=== PATIENT | male | born 1950 | race Caucasian/White ===

== ENCOUNTER 2018-01-08 14:02 | Emergency (ER) | payer MEDICARE ==
[~2018-01-08] VITALS: Ht 180.3 cm; Wt 75.0 kg
[~2018-01-08 14:02] MED LIST: ADVAIR DISK1; ADVIL200 MG OR; ALBUTEROL S2.5 MG/.5 IN; CIPRO500 MG OR; CIPROFLOXACN500 MG PO; DILAUDID2 MG OR; FLEXERIL PO; FLOMAX0.4 MG OR; LORTAB 5 OR; MEDDOSEPAK PO; MELOXICAM15 MG PO; PERCOCET 10/31 COMBO PO; PROAIR HFA IN; ULTRAM50 M1 PO; ZESTRIL/PRI10 MG/TAB PO
[2018-01-08 15:06] LABS: HEMOGLOBIN 12.3 g/dl (14.0-18.0); MEAN CELL VOLUME 94.6 fL CALC (80.0-100.0); MEAN CORPUSCULAR HGB 31.5 pG CALC (26.0-32.0); MEAN CORPUSCULAR HGB CONC 33.2 g/L CALC (32.0-36.0); NEUT# 7.22 thou/uL (1.82-7.42); RED BLOOD COUNT 3.91 mill/uL (4.70-6.10)
[2018-01-08 15:23] LABS: ALBUMIN 4.3 g/dL (3.2-5.0); BILIRUBIN, TOTAL 0.5 mg/dL (0.0-1.4); CREATININE 1.8 mg/dL (0.7-1.3); TOTAL PROTEIN 6.8 g/dL (6.3-8.2)
[2018-01-08 15:32] LABS: POTASSIUM 4.7 mmol/l (3.5-5.1)
[2018-01-08] MEDS ORDERED: MEDDOSEPAK PO (16:10)
[2018-01-08] MEDS ORDERED: ZITHROMAX250 MG PO (16:10)
[2018-01-08] MEDS ORDERED: PROVENTIL108 MCG/AC IN (16:10)
[2018-01-08 16:32] VITALS: BP 134/75
[2018-01-08] MEDS ORDERED: DUONEB IN (16:34)
== END 2018-01-08 16:32 | disposition home or self-care (01) ==
LOC: ED 14:02
PROVIDERS: Emergency Medicine
DX: J40 Bronchitis, not specified as acute or chronic (principal); F17.210 Nicotine dependence, cigarettes, uncomplicated; R05 Cough; R09.81 Nasal congestion; I10 Essential (primary) hypertension

== ENCOUNTER 2018-06-11 16:24 | Emergency (ER) | payer MEDICARE ==
[~2018-06-11] VITALS: Ht 180.3 cm; Wt 75.9 kg
[~2018-06-11 16:24] MED LIST changes: +DUONEB IN; +PROVENTIL108 MCG/AC IN; +ZITHROMAX250 MG PO
[2018-06-11] MEDS ORDERED: FAMOTIDINE20 M1 PO (16:38)
[2018-06-11] MEDS ORDERED: CEFUROXIME250 MG PO (16:39)
[2018-06-11] MEDS ORDERED: KEFLEX500 M1 PO (17:33)
[2018-06-11 18:15] VITALS: BP 150/72
== END 2018-06-11 18:15 | disposition home or self-care (01) ==
LOC: ED 16:24
PROC: 0JQJ0ZZ Repair Right Hand Subcutaneous Tissue and Fascia, Open Approach (ICD-10-PCS; principal; 2018-06-11)
DX: S61.210A Laceration without foreign body of right index finger without damage to nail, initial encounter (principal); I10 Essential (primary) hypertension; J44.9 Chronic obstructive pulmonary disease, unspecified; W45.8XXA Other foreign body or object entering through skin, initial encounter; Y93.E9 Activity, other interior property and clothing maintenance

== ENCOUNTER 2020-03-20 12:43 | Emergency (ER) | payer MEDICARE ==
[~2020-03-20 12:43] MED LIST changes: +AMOXICILLIN875 MG PO; +CEFUROXIME250 MG PO; +FAMOTIDINE20 M1 PO; +KEFLEX500 M1 PO; +TRAMADOL HYDROC50 MG PO
[2020-03-20] MEDS ORDERED: HYDROXYCHLOR200 M1 PO (13:11)
[2020-03-20] MEDS ORDERED: NIFEDIPINE30 MG PO (13:12)
[2020-03-20] MEDS ORDERED: TAMSULOSIN0.4 MG PO (13:13)
[2020-03-20] MEDS ORDERED: DALIRESP500 MCG PO (13:14)
[2020-03-20] MEDS ORDERED: SPIRIVA RE2.5 MCG/AC IN (13:17)
[2020-03-20] MEDS ORDERED: SYMBICORT1 AE1 IN (13:17)
[2020-03-20 13:36] LABS: HEMATOCRIT 32.1 % (39.0-50.0); HEMOGLOBIN 10.7 g/dl (14.0-18.0); IMMATURE GRANULOCYTES 0.2 % (0.0-5.0); MEAN CELL VOLUME 89.7 fL CALC (80.0-100.0); MEAN CORPUSCULAR HGB 29.9 pG CALC (26.0-32.0); MEAN CORPUSCULAR HGB CONC 33.3 g/dL CAL (32.0-36.0); NEUT# 5.41 thou/uL (1.82-7.42); RED BLOOD COUNT 3.58 mill/uL (4.70-6.10); RED CELL DISTRI WIDTH 13.7 % (11.5-15.5)
[2020-03-20 14:20] LABS: ALBUMIN 3.7 g/dL (3.2-5.0); BILIRUBIN, TOTAL 0.5 mg/dL (0.0-1.4); CREATININE 1.8 mg/dL (0.7-1.3); TOTAL PROTEIN 6.4 g/dL (6.3-8.2)
[2020-03-20 14:31] LABS: POTASSIUM 3.6 mmol/l (3.5-5.1)
[2020-03-20] MEDS ORDERED: ULTRAM50 M1 PO (18:52)
[2020-03-20] MEDS ORDERED: CEPHALEXIN500 M1 PO (18:52)
[2020-03-20 18:55] VITALS: BP 146/66
== END 2020-03-20 18:55 | disposition home or self-care (01) ==
LOC: ED 12:43
PROVIDERS: Emergency Medicine
DX: L03.113 Cellulitis of right upper limb (principal); R23.3 Spontaneous ecchymoses; I10 Essential (primary) hypertension; J44.9 Chronic obstructive pulmonary disease, unspecified; M79.89 Other specified soft tissue disorders

== ENCOUNTER 2020-03-22 10:23 | Emergency (ER) | payer MEDICARE ==
[~2020-03-22 10:23] MED LIST changes: +CEPHALEXIN500 M1 PO; +DALIRESP500 MCG PO; +HYDROXYCHLOR200 M1 PO; +NIFEDIPINE30 MG PO; +SPIRIVA RE2.5 MCG/AC IN; +SYMBICORT1 AE1 IN; +TAMSULOSIN0.4 MG PO
[2020-03-22 10:51] LABS: HEMATOCRIT 32.4 % (39.0-50.0); HEMOGLOBIN 10.9 g/dl (14.0-18.0); IMMATURE GRANULOCYTES 0.4 % (0.0-5.0); MEAN CELL VOLUME 89.5 fL CALC (80.0-100.0); MEAN CORPUSCULAR HGB 30.1 pG CALC (26.0-32.0); MEAN CORPUSCULAR HGB CONC 33.6 g/dL CAL (32.0-36.0); NEUT# 6.93 thou/uL (1.82-7.42); RED BLOOD COUNT 3.62 mill/uL (4.70-6.10); RED CELL DISTRI WIDTH 13.3 % (11.5-15.5)
[2020-03-22 11:27] LABS: ALBUMIN 3.9 g/dL (3.2-5.0); ALKALINE PHOSPHATASE 114 u/l (38-126); ANION GAP 13 (6-22 (CALC)); BILIRUBIN, TOTAL 0.4 mg/dL (0.0-1.4); BUN 15 mg/dL (8-23); BUN/CREATININE RATIO 9 (12-20 (CALC)); CARBON DIOXIDE 22 mmol/l (22-30); CHLORIDE 107 mmol/l (95-108); CREATININE 1.6 mg/dL (0.7-1.3); GFR 43 ML/MIN (>=60 (CALC)); GFR FOR AFR.AMER. 52 ML/MIN (>=60 (CALC)); LIPASE 34 u/l (23-300); POTASSIUM 3.4 mmol/l (3.5-5.1); SGOT/AST 21 u/l (19-48); SODIUM 138 mmol/l (137-146); TOTAL PROTEIN 6.6 g/dL (6.3-8.2)
[2020-03-22 12:21] LABS: URINE BILIRUBIN - DIPSTICK NEGATIVE (NEGATIVE); URINE BLOOD DIPSTICK NEGATIVE (NEGATIVE); URINE COLOR YELLOW; URINE GLUCOSE - DIPSTICK NEGATIVE (NEGATIVE); URINE KETONE NEGATIVE (NEGATIVE); URINE LEUK ESTERASE NEGATIVE (NEGATIVE); URINE NITRITE - DIPSTICK NEGATIVE (Negative); URINE PROTEIN - DIPSTICK NEGATIVE (NEG-TRACE); URINE SPECIFIC GRAVITY 1.015; URINE UROBILINOGEN - DIPSTICK 0.2 E.U./dL (0.2)
[2020-03-22] MEDS ORDERED: ONDANSETRON4 MG PO (12:27)
[2020-03-22 12:51] VITALS: BP 145/74
== END 2020-03-22 13:15 | disposition home or self-care (01) ==
LOC: ED 10:23
PROVIDERS: Family Medicine
DX: K52.9 Noninfective gastroenteritis and colitis, unspecified (principal); I10 Essential (primary) hypertension; J44.9 Chronic obstructive pulmonary disease, unspecified

== ENCOUNTER 2020-03-23 19:54 | Inpatient (IN) | payer MEDICARE ==
[~2020-03-23] VITALS: Ht 180.3 cm; Wt 73.7 kg
[~2020-03-23 19:54] MED LIST changes: +ONDANSETRON4 MG PO
[2020-03-23 21:01] LABS: HEMATOCRIT 33.1 % (39.0-50.0); HEMOGLOBIN 11.1 g/dl (14.0-18.0); IMMATURE GRANULOCYTES 0.4 % (0.0-5.0); MEAN CELL VOLUME 89.7 fL CALC (80.0-100.0); MEAN CORPUSCULAR HGB 30.1 pG CALC (26.0-32.0); MEAN CORPUSCULAR HGB CONC 33.5 g/dL CAL (32.0-36.0); NEUT# 4.71 thou/uL (1.82-7.42); RED BLOOD COUNT 3.69 mill/uL (4.70-6.10); RED CELL DISTRI WIDTH 13.4 % (11.5-15.5)
[2020-03-23 21:22] LABS: ALBUMIN 3.9 g/dL (3.2-5.0); BILIRUBIN, TOTAL 0.3 mg/dL (0.0-1.4); CREATININE 1.8 mg/dL (0.7-1.3); POTASSIUM 3.3 mmol/l (3.5-5.1); TOTAL PROTEIN 6.7 g/dL (6.3-8.2)
[2020-03-23 22:25] VITALS: BP 142/76
[2020-03-24 05:20] LABS: HEMOGLOBIN 10.3 g/dl (14.0-18.0); IMMATURE GRANULOCYTES 0.3 % (0.0-5.0); MEAN CELL VOLUME 90.4 fL CALC (80.0-100.0); MEAN CORPUSCULAR HGB CONC 33.2 g/dL CAL (32.0-36.0); NEUT# 3.24 thou/uL (1.82-7.42); RED BLOOD COUNT 3.43 mill/uL (4.70-6.10); RED CELL DISTRI WIDTH 13.5 % (11.5-15.5)
[2020-03-24 05:26] LABS: CREATININE 1.7 mg/dL (0.7-1.3); POTASSIUM 3.2 mmol/l (3.5-5.1)
[2020-03-24 07:00] VITALS: BP 139/60
[2020-03-24 11:03] VITALS: BP 117/62
[2020-03-24 15:45] VITALS: BP 127/58
[2020-03-24 19:32] VITALS: BP 146/75
[2020-03-25 00:09] VITALS: BP 131/56
[2020-03-25 03:51] VITALS: BP 143/68
[2020-03-25 08:00] VITALS: BP 141/63
[2020-03-25 09:52] LABS: CREATININE 2.1 mg/dL (0.7-1.3); POTASSIUM 3.8 mmol/l (3.5-5.1)
[2020-03-25 12:03] VITALS: BP 137/50
[2020-03-25] MEDS ORDERED: FLORASTOR250 M1 PO (19:15)
[2020-03-25] MEDS ORDERED: DOXYCYCL HYC100 MG PO ×2 (19:15)
[2020-03-25] MEDS ORDERED: AMOX/K CLAV875 M1 PO (19:15)
[2020-03-25 19:46] VITALS: BP 131/63
== END 2020-03-25 19:51 | disposition home or self-care (01) | DRG 603 ==
LOC: ED 19:54 → ED-I 21:24 → ED 21:32 → ICU 21:33
PROVIDERS: Family Medicine; Internal Medicine; ADMIT Internal Medicine; ATTEND Internal Medicine
DX: L03.113 Cellulitis of right upper limb (principal); R23.3 Spontaneous ecchymoses; J44.9 Chronic obstructive pulmonary disease, unspecified; I12.9 Hypertensive chronic kidney disease with stage 1 through stage 4 chronic kidney disease, or unspecified chronic kidney disease; N18.3 Chronic kidney disease, stage 3 (moderate); E87.6 Hypokalemia; Z11.59 Encounter for screening for other viral diseases; R11.2 Nausea with vomiting, unspecified; K52.9 Noninfective gastroenteritis and colitis, unspecified; I10 Essential (primary) hypertension
CPT/HCPCS: Q9967

== ENCOUNTER 2020-04-24 09:48 | Day surgery (SDC) | payer MEDICARE ==
[~2020-04-24] VITALS: Ht 180.3 cm; Wt 72.6 kg
[~2020-04-24 09:48] MED LIST changes: +AMOX/K CLAV875 M1 PO; +DOXYCYCL HYC100 MG PO; +FLORASTOR250 M1 PO
[2020-04-24 12:54] VITALS: BP 145/67
== END 2020-04-24 13:15 | disposition home or self-care (01) ==
LOC: ORM 09:48
PROVIDERS: ATTEND Surgery
PROC: 0JBG0ZZ Excision of Right Lower Arm Subcutaneous Tissue and Fascia, Open Approach (ICD-10-PCS; principal; 2020-04-24)
DX: D21.11 Benign neoplasm of connective and other soft tissue of right upper limb, including shoulder (principal); Z11.59 Encounter for screening for other viral diseases

== ENCOUNTER 2020-05-05 03:24 | Inpatient (IN) | payer MEDICARE ==
[~2020-05-05] VITALS: Ht 180.3 cm; Wt 70.3 kg
--- NOTE | 2020-05-05 03:25 | NUR ---
PATIENT TO ROOM 12 VIA EMS STRETCHER. UNDRESSED INTO A GOWN. TRIAGE COMPLETED AT BEDSIDE. PATIENT HAS ONE EPISODE OF VOMITING, MOSTLY BILE, DURING TRIAGE.
--- NOTE | 2020-05-05 04:25 | NUR ---
PT VOMITED BILE AND MISSED EMESIS BAG. GOWN CHANGED.
[2020-05-05 05:23] LABS: IMMATURE GRANULOCYTES 0.6 % (0.0-5.0); MEAN CELL VOLUME 92.1 fL CALC (80.0-100.0); MEAN CORPUSCULAR HGB 30.4 pG CALC (26.0-32.0); NEUT# 19.74 thou/uL (1.82-7.42); RED BLOOD COUNT 4.05 mill/uL (4.70-6.10); RED CELL DISTRI WIDTH 13.8 % (11.5-15.5)
--- NOTE | 2020-05-05 05:23 | NUR ---
PT VOMITED AGAIN ORDER FOR ZOFRAN RECEIVED AND GIVEN.
[2020-05-05 05:28] LABS: HEMATOCRIT 37.3 % (39.0-50.0); HEMOGLOBIN 12.3 g/dl (14.0-18.0)
[2020-05-05 05:34] LABS: ALBUMIN 4.8 g/dL (3.2-5.0); BILIRUBIN, TOTAL 0.7 mg/dL (0.0-1.4); CREATININE 1.9 mg/dL (0.7-1.3); POTASSIUM 4.1 mmol/l (3.5-5.1); TOTAL PROTEIN 7.4 g/dL (6.3-8.2)
--- NOTE | 2020-05-05 06:14 | NUR ---
BRENNEN IN FOR PORTABLE XRAY AND PT VOMITING WITH LITTLE OUTPUT.
--- NOTE | 2020-05-05 06:23 | NUR ---
CALLED HEAD PORTER [facility] FOR COMPAZINE NOT IN ER OR IV THERAPY
--- NOTE | 2020-05-05 07:04 | NUR ---
REPORT GIVEN TO NICHOL HORAN
--- NOTE | 2020-05-05 07:05 | NUR ---
REPORT REC'D CARE ASSUMED. PT RESTING IN BED AWAITING RETURN, AWARE OF PLANNED ADMISSION AND ASKS ABOUT VISITORS POLICY ONCE ADMITTED. ALL QUESTIONS ANSWERED.
--- NOTE | 2020-05-05 08:00 | NUR ---
PT RESTING AWARE OF PLANNAED ADMISSION, OFFERS NO NEW COMPLAINTS, CALL ZAYAS WITHIN REACH.
--- NOTE | 2020-05-05 09:01 | NUR ---
PT RESTING ATTEMPTED T CALL REPORT NURSE IN ANOTHER ROOM TO CALL WHEN SHE COMES OUT.
--- NOTE | 2020-05-05 09:34 | NUR ---
PT ARRIVED TO FLOOR VIA STRETCHER ACCOMPANIED BY NICHOL HORAN. PT REPORTS NAUSEA, FATIGUE AND EPIGASTRIC PAIN. MANISH RAM IN TO EXAMINE PT. PLAN OF CARE DISUCSSED. DIET OF CLEAR LIQUIDS REVIEWED. EMESIS BAGS PROVIDED. RIGHT ARM INCISION NOTED, CLOSED/SCABBED. SCATTERED BRUISING TO BILATERAL ARMS NOTED. PT. ALERT AND ORIENTED. GENERALIZED WEAKNESS NOTED. FALL PRECAUTIONS REINFORCED. CALL LIGHT REVIEWED AND IN REACH. PT STATES UNDERSTANDING.
--- NOTE | 2020-05-05 09:42 | NUR ---
PT TRANSFERRED TO MED SURG VIA WHEELCAHIR, ALL BELONGINGS WITH PT, NO TELE ORDERED, NURSE AT BEDSIDE AT TIME OF ARRIVAL.
[2020-05-05 09:46] VITALS: BP 140/70
--- NOTE | 2020-05-05 11:30 | NUR ---
DR. WEBB IN TO SEE PT.
--- NOTE | 2020-05-05 13:00 | NUR ---
DARK GREEN EMESIS REPORTED BY WEB SEARCH EVALUATOR. ZOFRAN IV ADMINISTERED. LIMITED PO INTAKE ENCOURAGED AT THIS TIME.
[2020-05-05 13:47] LABS: URINE BILIRUBIN - DIPSTICK NEGATIVE (NEGATIVE); URINE BLOOD DIPSTICK NEGATIVE (NEGATIVE); URINE COLOR YELLOW; URINE GLUCOSE - DIPSTICK NEGATIVE (NEGATIVE); URINE KETONE 15 mg/dL (NEGATIVE); URINE LEUK ESTERASE NEGATIVE (NEGATIVE); URINE NITRITE - DIPSTICK NEGATIVE (Negative); URINE PH 5.5 (4.5-8.0); URINE PROTEIN - DIPSTICK NEGATIVE (NEG-TRACE); URINE UROBILINOGEN - DIPSTICK 0.2 E.U./dL (0.2)
[2020-05-05 15:00] VITALS: BP 159/82
--- NOTE | 2020-05-05 18:00 | NUR ---
100 CC DARK GREEN EMESIS. COMPAZINE IV ADMINISTERED. WILL MONITOR FOR EFFECTIVENESS.
[2020-05-05 18:58] VITALS: BP 130/73
--- NOTE | 2020-05-05 19:00 | NUR ---
RECEIVED REPORT FROM NURSE DARYL, PATIENT RESTING IN BED, EYES CLOSED, CALL LIGHT AT REACH.
--- NOTE | 2020-05-05 21:00 | NUR ---
PATIENT STILL C/O OF NAUSEA, VOMITTED SCANT AMOUNT OF MUCUS, WHITE IN COLOR, PRN ZOFRAN GIVEN, ALSO WITH ONGOING IV NS @ 100 CC/HR INFUSING WELL ON LAC, LBM7/4, BRUISING NOTED ON BILAT FOREARMS, CALL LIGHT AT REACH.
[2020-05-06] VITALS (8 sets, daily range): BP systolic 152–189; BP diastolic 80–100
--- NOTE | 2020-05-06 01:00 | NUR ---
PATIENT APPEARS TO BE SLEEPING WITH EYES CLOSED, BREATHING EVEN AND UNLABORED CALL LIGHT AT REACH.
--- NOTE | 2020-05-06 05:01 | NUR ---
PATIENT APPEARS TO BE SLEEPING WITH EYES CLOSED, BREATHING EVEN AND UNLABORED CALL LIGHT AT REACH.
--- NOTE | 2020-05-06 05:35 | NUR ---
PATIENT AWAKEN VOMITED 50CC CLEAR WITH TINGED GREEN COLOR VOMITUS, PRN COMPAZINE GIVEN.
[2020-05-06 06:20] LABS: CREATININE 1.6 mg/dL (0.7-1.3); POTASSIUM 3.7 mmol/l (3.5-5.1)
--- NOTE | 2020-05-06 06:45 | NUR ---
DR WEBB MADE AWARE OF PATIENT HAVING ON AND OFF N/V, MADE AWARE OF TOTAL VOMITUS 50CC THROUGOUT SHIFT CLEAR WITH GREEN TINGED IN COLOR, WITH ORDERS MADE.
--- NOTE | 2020-05-06 08:00 | NUR ---
ASSESSMENT IS COMPLTED: IV SITE IS FREE FROM REDNESS OR EDEMA. HR IS REG,PULSES ARE STRONG X4 , ABD IS SOFT WITH ACTIVE BS. BREATH SOUNDS ARE CLEAR AND DIMINISHED. C/O "FEELING SICKNESS" WOULD LIKE TO HAVE SOMETHING TO STOP "THE SICKNESS" CONTINUE TO OBSERVE AND MONITOR.
--- NOTE | 2020-05-06 09:14 | NUR ---
O.T. SCREENED PATIENT THIS A.M. AND FOUND PATIENT NOT TO BE APPROPRIATE AT THIS TIME FOR AN O.T. EVAL DUE TO PATIENT DECLINING AND REPORTED BEING I WITH ALL, JUST NAUSEOUS.
--- NOTE | 2020-05-06 10:00 | NUR ---
ATTEMPTING TO RESTART IV SITE BECAME INFILTRATED WHEN GETTING COMPAZINE. UNSUCCESSFUL X3,
--- NOTE | 2020-05-06 10:46 | NUR ---
ATTEMPTED X2 MORE TIMES UNSUCCESSFUL.
--- NOTE | 2020-05-06 11:18 | NUR ---
NEW IV SITE OBTAINED BY LYNDSEY GANDARA AFTER 2 ATTEMPTS.
--- NOTE | 2020-05-06 11:22 | NUR ---
GAVE NEW MEDICATION TO ATTEMPT TO STOP THE DRY HEAVES AND NAUSEA. ENCOURAGING ICE CHIPS.
--- NOTE | 2020-05-06 11:44 | NUR ---
PT IS RESTING IN BED WITH NO DISTRESS NOTED. IV SITE IS IN LFA WITH NO REDNESS OR EDEMA. CONTINUE TO OSBERVE AND MONITOR.
--- NOTE | 2020-05-06 12:45 | NUR ---
PT IS RELAXING AND VISITING WITH SPOUSE. NO DISTRESS NOTED. CONTINUES WITH THE DRY HEAVES.
--- NOTE | 2020-05-06 16:43 | NUR ---
PT TRANSPORTED TO HAVE A CT OF THE BRAIN . VIA WC. WITH STAFF.
--- NOTE | 2020-05-06 16:45 | NUR ---
PT IS RELAXING IN BED WITH NO DISTRESS NOTED. IV SITE IS FREE FROM REDNESS OR EDEMA.
--- NOTE | 2020-05-06 18:17 | NUR ---
BP WAS CHECKED THIS AM INFORMED YO JHA RE: HIGH BP AND INQUIRED ABOUT IV MEDICATION. 0723:189/94, HR 78, AT 0832: 187/91, HR 73, AT 0841 WAS GIVEN APRESOLINE BY ERIN GANDARA. AT 0932 BP RECHECK: 174/82, HR WAS 94, AT 1526 RECHECKED: 180/90 HR 89 MANUALLY AT 1526 LABETALOL WAS GIVNE BY ERIN GANDARA BP CHECKED AGAIN AT 1700: 180/80, HR 71, AT 1725: 180/80 HR 71 APRESOLINE IV WASA GIVEN AGAIN BY ERNI GANDARA RECHECKED AGAIN AT 1800 NOW 159/86 HR 92. PT CONTINUES TO HAVE DRY HEAVES.
--- NOTE | 2020-05-06 18:32 | NUR ---
IV SITE INFILTRATED , STARTED TO HURT. PT HAS BEEN STUCK MULTIPLE TIMES TODAY, WILL INFORM NEXT SHIFT.
--- NOTE | 2020-05-06 20:04 | NUR ---
Patient is screened for PT intervention and there are no needs at this time `
--- NOTE | 2020-05-06 21:00 | NUR ---
UPON ENTERING ROOM PT FOUND TO BE RESTING IN BED. APPEARS COMFORTABLE AND IN NO APPARENT DISTRESS. RESPIRATIONS ARE REGULAR AND UNLABORED. PHYSICAL ASSESMENT COMPLETE AT THIS TIME. SCHEDULED MED(S) ADMINISTERED, SEE E-MAR. PLAN OF CARE REVIEWED, PT DENIES QUESTIONS, VERBALIZES UNDERSTANDING. DENIES NEEDS AT THIS TIME. ITEMS WITHIN REACH, BED LOCKED IN LOW POSITION W/ BEDRAILS UP X2. CALL ZAYAS WITHIN REACH, AGREES TO CALL PRN.
--- NOTE | 2020-05-07 02:01 | NUR ---
PT APPEARS TO BE SLEEPING COMFORTABLY, NO APPARENT DISTRESS, RESPIRATIONS REGULAR AND UNLABORED. CALL ZAYAS REMAINS WITHIN REACH.
[2020-05-07 04:48] VITALS: BP 149/80
[2020-05-07 05:09] LABS: HEMATOCRIT 35.1 % (39.0-50.0); HEMOGLOBIN 11.7 g/dl (14.0-18.0); MEAN CELL VOLUME 90.5 fL CALC (80.0-100.0); MEAN CORPUSCULAR HGB 30.2 pG CALC (26.0-32.0); MEAN CORPUSCULAR HGB CONC 33.3 g/dL CAL (32.0-36.0); RED BLOOD COUNT 3.88 mill/uL (4.70-6.10); RED CELL DISTRI WIDTH 13.5 % (11.5-15.5)
[2020-05-07 05:30] LABS: ALBUMIN 4.2 g/dL (3.2-5.0); BILIRUBIN, TOTAL 0.7 mg/dL (0.0-1.4); CREATININE 1.4 mg/dL (0.7-1.3); POTASSIUM 3.2 mmol/l (3.5-5.1); TOTAL PROTEIN 6.4 g/dL (6.3-8.2)
--- NOTE | 2020-05-07 06:42 | NUR ---
RUE NOTED TO BE EDEMATOUS BY PT, IV STOPPED. IV REMOVED. RUE SWOLLEN, NO PAIN, NO DISCOLORATION. PT HAS HAD 4 IV SITES INFILTRATE IN 24 HOURS. WILL ENDORSE TO AM NURSE. RUE ELEVATED ON PILLOWS ABOVE HEART LEVEL.
[2020-05-07 08:15] VITALS: BP 173/97
--- NOTE | 2020-05-07 08:15 | NUR ---
ASSESSMENT IS COMPLTED: NO IV SITE AT THIS TIME. HR IS REG,PULSES ARE STRONG X4, ABD IS SOFT WITH ACTIVE BS. BREATH SOUNDS ARE CLEAR BILATERALLY. NO C/O SOB. HAS SOME DRY HEAVES. CONTINUE TO OSBERVE AND MONITOR.
[2020-05-07 12:00] VITALS: BP 158/78
--- NOTE | 2020-05-07 12:00 | NUR ---
PT IS RELAXING IN BED WITH NO DISTRESS NOTED. CONTINUE TO OSBERVE AND MONITOR.
--- NOTE | 2020-05-07 12:05 | NUR ---
PT INQUIRED IF THE HICCUPS COULD CAUSE WHAT HE IS FEELING?
--- NOTE | 2020-05-07 12:13 | NUR ---
CALLED OFFICE SPOKE TO BIBIANA AMADOR INFORMATION. AND SHE STATED HE WILL BE HERE AFTER LUNCH.
--- NOTE | 2020-05-07 14:54 | NUR ---
IV SITE STARTED BY LYNDSEY GANDARA WITH 2 ATTEMPTS IN LEFT LEG WITH 20
[2020-05-07 15:55] VITALS: BP 155/56
--- NOTE | 2020-05-07 15:56 | NUR ---
INT HE ROOM INQUIRED WHEN HIS PROCEDURE WOULD BE IN THE AM. UNSURE EXPLAINED TO PT.
--- NOTE | 2020-05-07 19:00 | NUR ---
REPORT RECEIVED FROM Airam GARCIA LPN, CARE OF PT ASSUMED AT THIS TIME.
[2020-05-07 19:24] VITALS: BP 179/101
--- NOTE | 2020-05-07 20:20 | NUR ---
UPON ENTERING ROOM PT FOUND TO BE SITTING UP IN BED. APPEARS COMFORTABLE AND IN NO APPARENT DISTRESS. RESPIRATIONS ARE REGULAR AND UNLABORED. PHYSICAL ASSESMENT COMPLETE AT THIS TIME. SCHEDULED MED(S) ADMINISTERED, SEE E-MAR. PT C/O NAUSEA, NO EMESIS AT THIS TIME, REQUEST PRN ANTI-EMETIC, IV ZOFRAN ADMINISTERED. SEE MAR. PRN IV APRESOLINE ADMINISTERED FOR NIBP 179/100mmHg SEE MAR. PLAN OF CARE REVIEWED, PT DENIES QUESTIONS, VERBALIZES UNDERSTANDING. PROVIDED WITH AN ICE BACK PER PTS REQUEST FOR THE BACK OF HIS NECK. DENIES FURTHER NEEDS AT THIS TIME. ITEMS WITHIN REACH, BED LOCKED IN LOW POSITION W/ BEDRAILS UP X2. CALL ZAYAS WITHIN REACH, AGREES TO CALL PRN.
--- NOTE | 2020-05-07 22:20 | NUR ---
UPON ENTERING ROOM PT APPEARS TO BE SLEEPING. APPEARS COMFORTABLE AND IN NO APPARENT DISTRESS. RESPIRATIONS ARE REGULAR AND UNLABORED. ITEMS REMAIN WITHIN REACH, BED REMAINS LOCKED IN LOW POSITION W/ BEDRAILS UP X2 AND CALL ZAYAS REMAINS WITHIN REACH.
[2020-05-07 23:45] VITALS: BP 176/94
[2020-05-08 04:17] VITALS: BP 160/87
--- NOTE | 2020-05-08 06:00 | NUR ---
PT APPEARS TO BE SLEEPING COMFORTABLY IN BED. NO APPARENT DISTRESS. RESPIRATIONS REGULAR AND UNLABORED.PHYSICAL ASSESMENT UNCHANGED FROM BEGINING OF SHIFT BASELINE. PT AFEBRILE, HEMODYNAMICS STABLE. DENIES NEEDS AT THIS TIME. ITEMS REMAIN WITHIN REACH. BED REMAINS LOCKED IN LOW POSITION W/ BEDRAILS UPX2. CALL ZAYAS REMAINS WITHIN REACH, AGREES TO CALL PRN.
[2020-05-08 07:35] VITALS: BP 157/102
--- NOTE | 2020-05-08 07:35 | NUR ---
ASSESSMENT IS COMPLETED: IV SITE IS FREE FROM REDNESS OR EDEMA. HR IS REG,PULSES ARE STRONG X4, ABD IS SOFT WITH ACTIVE BS., BREATH SOUNDS ARE CLEAR, BILATERALLY. NOT RETCHING , OR NAUSEOUS YESTERDAY. CONTINUE TO OSBERVE AND MONITOR,
[2020-05-08 08:42] VITALS: BP 175/105
--- NOTE | 2020-05-08 08:42 | NUR ---
INQUIRED WITH LENY GANDARA IF SHE CAN GIVE THE MEDICATION FOR HIGH BP CONSISTENT : 157/102,175/107,AND THEN 175/105
--- NOTE | 2020-05-08 10:43 | NUR ---
PT TRANPORTED TO HAVE ABD SERIES COMPLETED
--- NOTE | 2020-05-08 10:45 | NUR ---
LEFT A MESSAGE FOR HIS RE: PT GOING FOR TESTING TODAY.
--- NOTE | 2020-05-08 11:29 | NUR ---
PT'S IN THE ROOM. WAITING ON PT. INFORMED THIS BOSS MINER" WE ARE IN THE MIDDLE OF A DIVORCE"
--- NOTE | 2020-05-08 12:00 | NUR ---
PT HAS BEEN IN XRAY WITH NO DISTRESS NOTED. IV SITE IS FREE FROM REDNESS OR EDEMA.
--- NOTE | 2020-05-08 12:15 | NUR ---
PT RETURNED FROM HAVING ABD SERIES COMPLETED; TOELRATED WELL.
[2020-05-08 12:39] VITALS: BP 167/90
--- NOTE | 2020-05-08 14:30 | NUR ---
NO C/O OF NAUSEA VOICED AT THIS TIME. TOLERATING FULL LIQUIDS.
--- NOTE | 2020-05-08 14:57 | NUR ---
INQUIRED WITH DR MONREAL IF PT COULD GO BACK TO FULL LIQUIDS " NO PROBLEM".
[2020-05-08 15:00] VITALS: BP 153/94
--- NOTE | 2020-05-08 16:00 | NUR ---
PT IS RELAXING IN BED WITH NO DISTRESS NOTED. IV SITE IS FREE FROM REDNESS OR EDEMA.
--- NOTE | 2020-05-08 18:17 | NUR ---
PT CONTINUES TO RELAX IN BED WITH NO DISTRESS NOTED.
[2020-05-08 19:10] VITALS: BP 137/82
--- NOTE | 2020-05-08 19:10 | NUR ---
REPORT FROM JASON CELIS. PT RESTING IN BED. NO APPARENT DISTRESS NOTED. IV SITE APPEARS HEALTHY. PT DENIES ANY NAUSEA AT THIS TIME. DISCUSSED POC. PT VERBALIZED UNDERSTANDING. CALL LIGHT WITHIN REACH. WILL CONTINUE TO MONITOR.
--- NOTE | 2020-05-08 21:45 | NUR ---
PT MEDICATED ORDERED. PRN SL ZOFRAN ADMINISTERED. IV FLUIDS INFUSING, IV SITE APPEARS HEALTHY, DRESSING REINFORCED WITH TAPE. ICE CHIPS PROVIDED UPON REQUEST. PT DENIES ANY OTHER WANTS OR NEEDS. CALL LIGHT WITHIN REACH. WILL CONTINUE TO MONITOR.
[2020-05-09] VITALS (12 sets, daily range): BP systolic 130–167; BP diastolic 72–97
--- NOTE | 2020-05-09 01:25 | NUR ---
PT RESTING IN BED WITH EYES CLOSED. NO APPARENT DISTRESS NOTED. RESPIRATIONS EVEN AND UNLABORED. CALL LIGHT WITHIN REACH. WILL CONTINUE TO MONITOR.
--- NOTE | 2020-05-09 05:14 | NUR ---
PT RESTING IN BED. NO APPARENT DISTRESS NOTED. RESPIRATIONS EVEN AND UNLABORED. CALL LIGHT WITHIN REACH. WILL CONTINUE TO MONITOR.
--- NOTE | 2020-05-09 06:54 | NUR ---
CALL FROM DR. MONREAL, ORDERS RECEIVED TO MAKE PT NPO AND OBTAIN CONSENT FOR EGD @1948. PT SIGNED CONSENT AT THIS TIME. PT DENIES ANY QUESTIONS OR CONCERNS. ALL FOOD AND DRINKS REMOVED FROM ROOM.
--- NOTE | 2020-05-09 07:15 | NUR ---
REPORT RECEIVED FROM [employer]. SCHEDULED EGD THIS MORNING. PT RESTING IN BED. ALERT AND ORIENTED TO STIMULI. IV APPEARS TO HEALTHY AND FLUSHES. IV LOCATED IN LEFT LOWER EXTREMITY.
--- NOTE | 2020-05-09 07:30 | NUR ---
BIOFIRE SWAB OBTAINED AND SENT TO LAB.
--- NOTE | 2020-05-09 07:48 | NUR ---
ASSESSMENT AND VITALS PERFORMED. PT ENCOURAGED TO VERBALIZE ANY CONCERNS.
--- NOTE | 2020-05-09 08:19 | NUR ---
DR. MONREAL TO PREFORM EGD @8:30. PT NPO AND OBTAIN CONSENT. PT DENIES ANY QUESTIONS OR CONCERNS. ALL FOOD AND DRINK HAS BEEN REMOVED. MORNING MEDICATION HAS BEEN HELD. PT SPOKE TO ANESTHESIOLOGIST PRE OP IN HIS ROOM. PT WAS ADVISED THAT PROCEDURE WOULD BEGIN SHORTLY.
--- NOTE | 2020-05-09 08:34 | NUR ---
PT SENT TO THE OR FOR HIS EGD PROCEDURE.
--- NOTE | 2020-05-09 11:47 | NUR ---
PT EXPERIENCING SOME ESOPHAGEL AND ABDOMINAL PAIN AFTER A EGD THIS MORNING. MEDICATED WITH PRN MEDICATION PER DR WEBB. PT RECEIVED A CLEAR LIQUID DIET FOR LUNCH. WILL CONTINUE TO MONITOR.
[2020-05-09 11:57] LABS: HEMATOCRIT 39.4 % (39.0-50.0); MEAN CELL VOLUME 90.2 fL CALC (80.0-100.0); MEAN CORPUSCULAR HGB 29.7 pG CALC (26.0-32.0); RED BLOOD COUNT 4.37 mill/uL (4.70-6.10); RED CELL DISTRI WIDTH 13.2 % (11.5-15.5)
[2020-05-09 12:18] LABS: ALBUMIN 3.8 g/dL (3.2-5.0); ALKALINE PHOSPHATASE 101 u/l (38-126); ANION GAP 14 (6-22 (CALC)); BILIRUBIN, TOTAL 0.7 mg/dL (0.0-1.4); BUN 27 mg/dL (8-23); BUN/CREATININE RATIO 21 (12-20 (CALC)); CARBON DIOXIDE 20 mmol/l (22-30); CHLORIDE 104 mmol/l (95-108); CREATININE 1.3 mg/dL (0.7-1.3); GFR 54 ML/MIN (>=60 (CALC)); GFR FOR AFR.AMER. > 60 ML/MIN (>=60 (CALC)); SGOT/AST 60 u/l (19-48); SODIUM 136 mmol/l (137-146); TOTAL PROTEIN 5.8 g/dL (6.3-8.2)
--- NOTE | 2020-05-09 16:06 | NUR ---
PT RESTING QUIETLY. DENIES PAIN AT THIS TIME. NS RUNNING AT 100 WITH A HEALTHY IV SITE IN HIS LEFT LOWER EXTERMITY. PT ENCOURAGED TO VERBALIZE CONCERNS. CALL LIGHT WITHIN REACH.
--- NOTE | 2020-05-09 18:02 | NUR ---
pT COMPLAINING OF PAIN AND ADOMINAL DISCOMFORT; PROVIDED PRN MEDICATION. PT ENCOURAGED TO VERBALIZE ANY CONCERNS. WILL CONTINUE TO MONITOR.
--- NOTE | 2020-05-09 19:15 | NUR ---
REPORT FROM MONIQUE GANDARA. PT RESTING IN BED. NO APPARENT DISTRESS NOTED. PT C/O MILD PAIN, DENIES NEED FOR PAIN MEDS. IV SITE APPEARS HEALTHY. DISCUSSED POC. PT VERBALIZED UNDERSTANDING. CALL LIGHT WITHIN REACH. WILL CONTINUE TO MONITOR.
--- NOTE | 2020-05-09 23:38 | NUR ---
PT RESTING IN BED. NO APPARENT DISTRESS NOTED. RESPIRATIONS EVEN AND UNLABORED. CALL LIGHT WITHIN REACH. WILL CONTINUE TO MONITOR.
--- NOTE | 2020-05-10 04:18 | NUR ---
PT MEDICATED FOR GENERALIZED PAIN WITH PO ULTRAM AT THIS TIME. FRESH ICE WATER PROVIDED. IV SITE APPEARS HEALTHY. VSS. NO APPARENT DISTRESS NOTED. CALL LIGHT WITHIN REACH. WILL CONTINUE TO MONITOR.
[2020-05-10 04:30] VITALS: BP 151/84
--- NOTE | 2020-05-10 08:03 | NUR ---
REPORT RECEIVED FROM LALITA STROUD. PT USING CALL LIGHT TO ASK FOR NURSE; SITTING UP ON EDGE OF BED; ALERT AND ORIENTED. INCONTINENET OF MODERATE WATERY BOWEL MOVEMENT; PT GAVE HIMSELF A PARTIAL BATH INDEPENDENTLY; DECLINES FULL SHOWER; LINENS CHANGED. DENIES PAIN. RESPIRATIONS EVEN AND UNLABORED ON ROOM AIR. LUNGS ARE CLEAR; ABDOMEN DISTENDED AND FIRM, BUT NONTENDER WITH GOOD BOWEL SOUNDS X 4; HR IRREGULAR; WEAK PULSES. PLAN OF CARE REVIEWED. PT ENCOURAGED TO VERBALIZE CONCERNS; STATES UNDERSTANDING. SAFETY MEASURES IN PLACE. CALL LIGHT WITHIN REACH.
[2020-05-10 08:05] VITALS: BP 146/93
[2020-05-10 09:45] VITALS: BP 146/93
--- NOTE | 2020-05-10 10:30 | NUR ---
PROVIDED POTASSIUM POWDER MIXED WITH WATER TO REPLACE K+ OF 3.0; PT UNABLE TO TOLERATE FIRST CUP STATING IT HURTS HIS STOMACH AND REQUESTS ANOTHER FORM OF MEDICATION. GIVEN 60 JACINTO OF PO AND PT SWALLOWED PILLS WITHOUT DIFFICULTY.
--- NOTE | 2020-05-10 12:00 | NUR ---
DR. WEBB AT BEDSIDE.
[2020-05-10] MEDS ORDERED: PROTONIX40 MG PO (12:47)
[2020-05-10] MEDS ORDERED: MAG-AL PLU1 PO (12:48)
--- NOTE | 2020-05-10 13:54 | NUR ---
IV site discontinued, cath intact. No edema , no redness, voices no discomfort.
--- NOTE | 2020-05-10 14:00 | NUR ---
Discharge instructions given. Patient verbalizes understanding of same. Discharged in stable condition via Wheelchair to Home with spouse. All belongings sent with pt including home medication. Mylanta given prior to dc per pt request.
== END 2020-05-10 14:00 | disposition home or self-care (01) | DRG 381 ==
LOC: ED 03:24 → ED-I 06:43 → ED 06:54 → MS2 06:55 → ED-I 06:55 → MS2 08:20
PROVIDERS: Family Medicine; Nurse Practitioner Family; ADMIT Internal Medicine; ATTEND Internal Medicine
PROC: 0DB98ZX Excision of Duodenum, Via Natural or Artificial Opening Endoscopic, Diagnostic (ICD-10-PCS; principal; 2020-05-09)
PROC: 0DB78ZX Excision of Stomach, Pylorus, Via Natural or Artificial Opening Endoscopic, Diagnostic (ICD-10-PCS; 2020-05-09)
PROC: 0DB58ZX Excision of Esophagus, Via Natural or Artificial Opening Endoscopic, Diagnostic (ICD-10-PCS; 2020-05-09)
DX: K22.10 Ulcer of esophagus without bleeding (principal); N17.9 Acute kidney failure, unspecified; K21.0 Gastro-esophageal reflux disease with esophagitis; K44.9 Diaphragmatic hernia without obstruction or gangrene; I12.9 Hypertensive chronic kidney disease with stage 1 through stage 4 chronic kidney disease, or unspecified chronic kidney disease; N18.3 Chronic kidney disease, stage 3 (moderate); K29.80 Duodenitis without bleeding; K29.70 Gastritis, unspecified, without bleeding; J44.9 Chronic obstructive pulmonary disease, unspecified; M06.9 Rheumatoid arthritis, unspecified; S00.12XA Contusion of left eyelid and periocular area, initial encounter; X58.XXXA Exposure to other specified factors, initial encounter; Z87.11 Personal history of peptic ulcer disease; Z87.891 Personal history of nicotine dependence; Z20.828 Contact with and (suspected) exposure to other viral communicable diseases
CPT/HCPCS: G0378; S0164

== ENCOUNTER 2020-10-08 14:29 | Emergency (ER) | payer MEDICARE ==
[~2020-10-08] VITALS: Ht 180.3 cm; Wt 74.0 kg
[~2020-10-08 14:29] MED LIST changes: +MAG-AL PLU1 PO; +PROTONIX40 MG PO
[2020-10-08] MEDS ORDERED: IPRATROPIU0.5 MG/3 M IN (15:03)
[2020-10-08] MEDS ORDERED: NIFEDIPINE ER30 M1 PO (15:42)
[2020-10-08 16:27] LABS: HEMATOCRIT 41.1 % (39.0-50.0); HEMOGLOBIN 13.8 g/dl (14.0-18.0); IMMATURE GRANULOCYTES 0.4 % (0.0-5.0); MEAN CELL VOLUME 95.1 fL CALC (80.0-100.0); MEAN CORPUSCULAR HGB 31.9 pG CALC (26.0-32.0); MEAN CORPUSCULAR HGB CONC 33.6 g/dL CAL (32.0-36.0); NEUT# 3.77 thou/uL (1.82-7.42); RED BLOOD COUNT 4.32 mill/uL (4.70-6.10); RED CELL DISTRI WIDTH 14.1 % (11.5-15.5)
[2020-10-08 16:45] LABS: URINE BILIRUBIN - DIPSTICK NEGATIVE (NEGATIVE); URINE BLOOD DIPSTICK NEGATIVE (NEGATIVE); URINE COLOR YELLOW; URINE GLUCOSE - DIPSTICK NEGATIVE (NEGATIVE); URINE KETONE NEGATIVE (NEGATIVE); URINE LEUK ESTERASE NEGATIVE (NEGATIVE); URINE NITRITE - DIPSTICK NEGATIVE (Negative); URINE PH 5.5 (4.5-8.0); URINE PROTEIN - DIPSTICK TRACE mg/dL (NEG-TRACE); URINE SPECIFIC GRAVITY >=1.030; URINE UROBILINOGEN - DIPSTICK 0.2 E.U./dL (0.2)
[2020-10-08 16:49] LABS: CREATININE 1.7 mg/dL (0.7-1.3); POTASSIUM 3.8 mmol/l (3.5-5.1); TOTAL PROTEIN 6.7 g/dL (6.3-8.2)
[2020-10-08 16:51] LABS: BILIRUBIN, TOTAL 0.1 mg/dL (0.0-1.4)
[2020-10-08 17:30] VITALS: BP 139/79
== END 2020-10-08 17:30 | disposition home or self-care (01) ==
LOC: ED 14:29
PROVIDERS: Student in an Organized Health Care Education/Training Program
DX: M54.5 Low back pain (principal); N28.1 Cyst of kidney, acquired; I10 Essential (primary) hypertension; K44.9 Diaphragmatic hernia without obstruction or gangrene

== ENCOUNTER 2020-10-19 15:59 | Inpatient (IN) | payer MEDICARE ==
[~2020-10-19] VITALS: Ht 180.3 cm; Wt 65.3 kg
[~2020-10-19 15:59] MED LIST changes: +IPRATROPIU0.5 MG/3 M IN; +NIFEDIPINE ER30 M1 PO
--- NOTE | 2020-10-19 16:00 | NUR ---
PT ASSISTED TO ROOM VIA W/C
--- NOTE | 2020-10-19 16:39 | NUR ---
PT ARRIVES WITH SOB THAT STARTED TODAY. RR 22 AND HE ALSO HAS OTHER S/S THAT HE HAS HAD PREVIOUSLY FOR THREE DAYS. NAUSEA, DIARREA AND WEAKNESS. LUNGS CLEAR RIGHT SIDE, LEFT LOWER SIDE IS DIMINISHED AND SLIGHT CRACKLES. SPO2 88% AT ONE POINT AND THEN WITH REPOSITIONING OF PT SPO2 97%. PT STATES HAVING INTERM CHEST PAIN. WILL CONTINUE TO MONITOR.
--- NOTE | 2020-10-19 17:30 | NUR ---
PT TOLERATED TREATMENTS WELL, RESTING IN STRETCHER WITH RR OF 22. SPO2 AT 92%. DENIES ANY NEEDS AT THIS TIME, PLAN OF CARE AND WAIT TIME DISCUSSED. WARM BLANKET APPLIED
[2020-10-19 17:35] LABS: HEMATOCRIT 48.6 % (39.0-50.0); HEMOGLOBIN 16.1 g/dl (14.0-18.0); IMMATURE GRANULOCYTES 0.9 % (0.0-5.0); MEAN CELL VOLUME 94.7 fL CALC (80.0-100.0); MEAN CORPUSCULAR HGB 31.4 pG CALC (26.0-32.0); MEAN CORPUSCULAR HGB CONC 33.1 g/dL CAL (32.0-36.0); NEUT# 7.13 thou/uL (1.82-7.42); RED BLOOD COUNT 5.13 mill/uL (4.70-6.10); RED CELL DISTRI WIDTH 13.5 % (11.5-15.5)
[2020-10-19 17:52] LABS: ALBUMIN 4.4 g/dL (3.2-5.0); CREATININE 2.6 mg/dL (0.7-1.3); POTASSIUM 4.5 mmol/l (3.5-5.1)
[2020-10-19 17:57] LABS: BILIRUBIN, TOTAL 0.5 mg/dL (0.0-1.4); TOTAL PROTEIN 8.4 g/dL (6.3-8.2)
--- NOTE | 2020-10-19 18:32 | NUR ---
PT ASKED FOR ANOTHER WARM BLANKET. PT HANDS ARE COLD AND SPO2 IS NOT PICKING UP % OF O2. OTHER AREAS ARE ATTEMPED TO GET GOOD READING. NOTIFIED. ZOFRAN GIVEN FOR REPORTED NAUSEA AND FLUIDS INITIATED INTO PATENT IV
--- NOTE | 2020-10-19 19:00 | NUR ---
RECEIVED REPORT FROM NICHOL REBOLLAR. PT CURRENTLY IN CT.
--- NOTE | 2020-10-19 19:00 | NUR ---
GAVE REPORT TO AGGIE
--- NOTE | 2020-10-19 20:00 | NUR ---
PT COMPLAINING OF NAUSEA. DR GALVAN INFORMED. WILL ORDER PHENERGAN
--- NOTE | 2020-10-19 20:32 | NUR ---
LAB IN FOR REPEAT LACTIC ACID.
--- NOTE | 2020-10-19 21:30 | NUR ---
LACTIC ACID DOWN WNL. WAITING ON ADMIT ORDERS DR WALLACE AWARE.
--- NOTE | 2020-10-19 22:00 | NUR ---
Admission Note Report Given to: NICHOL DOTSON Transported by: X Wheelchair Stretcher Transported with: X Nurse Transporter X Patent IV O2 Roofing Plant Supervisor Location: ICU X [facility]
[2020-10-19 22:18] VITALS: BP 154/74
--- NOTE | 2020-10-20 02:00 | NUR ---
PT WAS ADMITTED WITH DIAGNOSIS ABD PAIN AND NAUSEA. ALERT AND ORIENTED X3 AND ABLE TO VERBALIZE NEEDS. NO RESPIRATORY DISTRESS NOTED. O2 SAT 93 % ROOM AIR. PT IS CONTINENT OF B/B. EXPIRATORY WHEEZES NOTE IN LUNG BAR. WILL CONTINUE TO OBSERVE
[2020-10-20 04:00] VITALS: BP 153/72
[2020-10-20 06:13] LABS: URINE BILIRUBIN - DIPSTICK NEGATIVE (NEGATIVE); URINE BLOOD DIPSTICK NEGATIVE (NEGATIVE); URINE COLOR YELLOW; URINE GLUCOSE - DIPSTICK NEGATIVE (NEGATIVE); URINE KETONE NEGATIVE (NEGATIVE); URINE LEUK ESTERASE NEGATIVE (NEGATIVE); URINE NITRITE - DIPSTICK NEGATIVE (Negative); URINE PH 5.5 (4.5-8.0); URINE PROTEIN - DIPSTICK NEGATIVE (NEG-TRACE); URINE UROBILINOGEN - DIPSTICK 0.2 E.U./dL (0.2)
[2020-10-20 06:28] LABS: CREATININE 1.8 mg/dL (0.7-1.3); POTASSIUM 4.4 mmol/l (3.5-5.1)
--- NOTE | 2020-10-20 07:50 | NUR ---
PT COMPLPAINED OF NAUSEA AND ZOFRAN ORDERED IV PRN AND ADNINISTERED.
[2020-10-20 08:08] VITALS: BP 140/67
--- NOTE | 2020-10-20 08:20 | NUR ---
PATIENT RESTING QUIETLY IN BED, NO C/O PAIN, SOB, OR DISTRESS AT THIS TIME. PATIENT IV INFILTRATED AND REMOVED, CATHETER INTACT. PATIENT ON 02 VIA NASAL CANNULA, CALL ZAYAS WITHIN REACH, BED IN LOWEST POSITION.
--- NOTE | 2020-10-20 12:00 | NUR ---
PATIENT C/O NAUSEA AND VOMIT X 1, ZOFRAN PER ORDER GIVEN, WILL CONTINUE TO MONITOR.
--- NOTE | 2020-10-20 14:20 | NUR ---
CALLED DR. LEON OFFICE AT [phone] SPOKE TO THE ANSWERING SERVICE AND GAVE ALL INFORMATION FOR PT. STATED HER NAME WAS SHOBHA AND SHE WILL PAGE DR. LEON.
[2020-10-20 15:15] VITALS: BP 146/83
--- NOTE | 2020-10-20 16:42 | NUR ---
PATIENT RESTING QUIETLY IN BED, NO C/O PAIN, SOB, OR N/V AT THIS TIME. HOUSEHOLD APPLIANCE INSTALLER MADE AWARE OF VOMITING, NEW ORDERS RECEIVED. IV FLUIDS RUNNING, 02 VIA NASAL CANNULA ON, CALL LIGHT WITHIN REACH, BED IN LOWEST POSITION, WILL CONTINUE TO MONITOR.
--- NOTE | 2020-10-20 19:14 | NUR ---
REPORT REESE MONTE RN. ASSUMED PT CARE.
[2020-10-20 19:30] VITALS: BP 126/61
--- NOTE | 2020-10-20 20:54 | NUR ---
PT MEDICATED FOR NAUSEA WITH PRN ZOFRAN. NO APPARENT DISTRESS NOTED. PT REQUESTING MILK, PROVIDED AT THIS TIME. PT ALERT AND ORIENTED. IV SITE APPEARS HEALTHY WITH IVF INFUSING. DISCUSSED POC. PT VERBALIZED UNDERSTANDING. NO OTHER CURRENT WANTS OR NEEDS. CALL LIGHT WITHIN REACH. WILL CONTINUE TO MONITOR.
--- NOTE | 2020-10-20 21:30 | NUR ---
JEFF EFFECTIVE. PT DENIES ANY CURRENT WANTS OR NEEDS. URINAL EMPTIED AT THIS TIME. CALL LIGHT WITHIN REACH. WILL CONTINUE TO MONITOR.
--- NOTE | 2020-10-20 22:44 | NUR ---
PT RESTING IN BED. NO APPARENT DISTRESS NOTED. RESPIRATIONS EVEN AND UNLABORED, ON 3L/M VIA NC. URINAL EMPTIED AT THIS TIME. CALL LIGHT WITHIN REACH. WILL CONTINUE TO MONITOR.
--- NOTE | 2020-10-21 03:54 | NUR ---
PT RESTING IN BED. NO APPARENT DISTRESS NOTED. RESPIRATIONS EVEN AND UNLABORED, ON 3L/M VIA NC. CALL LIGHT WITHIN REACH. WILL CONTINUE TO MONITOR.
[2020-10-21 05:00] VITALS: BP 156/72
--- NOTE | 2020-10-21 05:03 | NUR ---
PT MEDICATED WITH PRN PHENERGAN. PT NOTED HOVERING OVER GARBAGE CAN WITH DRY HEAVES. NO VOMIT NOTED. EMESIS BAG PROVIDED. ASSISTED PT BACK INTO BED. CALL LIGHT WITHIN REACH. WILL CONTINUE TO MONITOR.
--- NOTE | 2020-10-21 06:01 | NUR ---
PT RESTING IN BED. NO APPARENT DISTRESS NOTED. PT STATES PHENERGAN EFFECTIVE. NO CURRENT WANTS OR NEEDS. CALL LIGHT WITHIN REACH. WILL CONTINUE TO MONITOR.
[2020-10-21 06:05] LABS: HEMATOCRIT 42.9 % (39.0-50.0); MEAN CELL VOLUME 94.3 fL CALC (80.0-100.0); MEAN CORPUSCULAR HGB CONC 32.9 g/dL CAL (32.0-36.0); NEUT# 6.67 thou/uL (1.82-7.42); RED BLOOD COUNT 4.55 mill/uL (4.70-6.10); RED CELL DISTRI WIDTH 13.3 % (11.5-15.5)
[2020-10-21 06:17] LABS: BILIRUBIN, TOTAL 0.7 mg/dL (0.0-1.4); C-REACTIVE PROTEIN 5.8 mg/dL (0-0.9); CREATININE 1.6 mg/dL (0.7-1.3)
[2020-10-21 06:25] LABS: ALBUMIN 3.4 g/dL (3.2-5.0); HEMOGLOBIN 14.1 g/dl (14.0-18.0); TOTAL PROTEIN 6.2 g/dL (6.3-8.2)
[2020-10-21 07:50] VITALS: BP 120/75
--- NOTE | 2020-10-21 07:50 | NUR ---
ASSESSMENT IS COMPLETED: IV SIT EIS FREE FROM REDNESS OR EDEMA. HR IS REG,PULSES ARE STRONG X4, ABD IS SOFT WITH ACTIVE BS, BREATH SOUNDS ARE WHEEZING THROUGH OUT. O2 @ 3LITER WITH NC.
--- NOTE | 2020-10-21 12:30 | NUR ---
PT IS RELAXING IN BED WITH NO DISTRESS NOTED IV SITE IS FREE FROM REDNESS OR EDEMA.
[2020-10-21 15:10] VITALS: BP 131/72
--- NOTE | 2020-10-21 16:30 | NUR ---
PT IS RELAXING IN BED WITH MO DISTRESS NOTED. IV SITE IS FREE FROM REDNESS OR EDEMA.
[2020-10-21 19:00] VITALS: BP 142/72
[2020-10-22 04:30] VITALS: BP 122/72
[2020-10-22 06:02] LABS: HEMATOCRIT 39.5 % (39.0-50.0); HEMOGLOBIN 13.3 g/dl (14.0-18.0); MEAN CELL VOLUME 93.2 fL CALC (80.0-100.0); MEAN CORPUSCULAR HGB 31.4 pG CALC (26.0-32.0); MEAN CORPUSCULAR HGB CONC 33.7 g/dL CAL (32.0-36.0); NEUT# 7.2 thou/uL (1.82-7.42); RED BLOOD COUNT 4.24 mill/uL (4.70-6.10); RED CELL DISTRI WIDTH 13.1 % (11.5-15.5)
[2020-10-22 06:13] LABS: BILIRUBIN, TOTAL 0.8 mg/dL (0.0-1.4); CREATININE 1.8 mg/dL (0.7-1.3); POTASSIUM 4.4 mmol/l (3.5-5.1); TOTAL PROTEIN 5.8 g/dL (6.3-8.2)
[2020-10-22 08:20] VITALS: BP 128/80
--- NOTE | 2020-10-22 08:20 | NUR ---
ASSESSMENT IS COMPLETED: IV SITE IS FREE FROM REDNESS OR EDEMA. HR IS REG,PULSES ARE STRONG X4, ABD IS SOFT WITH ACTIV EBS. BREATH SOUNDS ARE CLEAR WITH SOME WHEEZING NOTED. CONTINUE TO OSBERVE AND MONITOR. IV SITE CAME OUT WILL RESTART.
--- NOTE | 2020-10-22 10:00 | NUR ---
NEW IV SITE OBTAINED BY Reema VILLALPANDO RN. IN RH WITH #22
--- NOTE | 2020-10-22 12:30 | NUR ---
PT IS RELAXING IN BED WITH NO DISTRESS NOTED. IV SITE IS FREE FROM REDNESS OR EDEMA.
[2020-10-22 15:00] VITALS: BP 131/70
--- NOTE | 2020-10-22 16:30 | NUR ---
PT IS RELAXING IN BED WITH NO DISTRESS NOTED. IV SITE IS FREE FROM REDNESS OR EDEMA.
[2020-10-22 19:46] VITALS: BP 149/88
--- NOTE | 2020-10-22 20:05 | NUR ---
PHYSICAL ASSESMENT COMPLETE. PT CURRENTLY DENIES PAIN OR DISCOMFORT. SCHEDULED MEDICATIONS AND PRN MEDICATION ADMINISTERED, SEE E-MAR. PT DENIES ANY NEEDS AT THIS TIME. PLAN OF CARE REVIEWED, PT DENIES QUESTIONS, VERBALIZES UNDERSTANDING. ITEMS WITHIN REACH, BED LOCKED IN LOW POSITION W/ BEDRAILS UP X2. CALL ZAYAS WITHIN REACH, AGREES TO CALL PRN.
--- NOTE | 2020-10-23 00:11 | NUR ---
PT LAYING IN BED WITH EYES CLOSED, APPEARS TO BE SLEEPING, APPEARS COMFORTABLE AND IN NO DISTRESS. IV ANTIBIOTICS RUNNING. RESPIRATIONS REGULAR AND UNLABORED. ITEMS REMAIN WITHIN REACH, CALL ZAYAS REMAINS WITHIN REACH. BED REMAINS LOCKED AND IN LOW POSITION WITH BEDRAILS UP X2. WILL CONTINUE TO MONITOR.
--- NOTE | 2020-10-23 04:06 | NUR ---
PT RESTING IN BED, NO SIGNS OF DISTRESS NOTED, RESP EVEN AND UNLABORED. PT VOICES NO NEEDS OR COMPLAINTS AT THIS TIME. CALL LIGHT IN REACH, CONTINUE TO MONITOR.
[2020-10-23 05:13] VITALS: BP 132/71
[2020-10-23 05:26] LABS: HEMATOCRIT 36.2 % (39.0-50.0); HEMOGLOBIN 12.2 g/dl (14.0-18.0); IMMATURE GRANULOCYTES 1.9 % (0.0-5.0); MEAN CELL VOLUME 93.1 fL CALC (80.0-100.0); MEAN CORPUSCULAR HGB 31.4 pG CALC (26.0-32.0); MEAN CORPUSCULAR HGB CONC 33.7 g/dL CAL (32.0-36.0); NEUT# 10.6 thou/uL (1.82-7.42); RED BLOOD COUNT 3.89 mill/uL (4.70-6.10)
[2020-10-23 05:55] LABS: ALBUMIN 2.8 g/dL (3.2-5.0); C-REACTIVE PROTEIN 5.9 mg/dL (0-0.9); CREATININE 1.7 mg/dL (0.7-1.3); POTASSIUM 4.4 mmol/l (3.5-5.1); TOTAL PROTEIN 5.4 g/dL (6.3-8.2)
[2020-10-23 06:00] LABS: BILIRUBIN, TOTAL 0.3 mg/dL (0.0-1.4)
[2020-10-23 09:00] VITALS: BP 117/64
--- NOTE | 2020-10-23 09:00 | NUR ---
ASSESSMENT IS COMPLETED: IV SITE IS FREE FROM REDNESS OR EDEMA. HR IS REG,PULSES ARE STRONG X4, ABD IS SOFT WITH ACTIVE BS. BREATH SOUNDS ARE CLEAR AND DIMINISHED. O2@3LITERS NC
--- NOTE | 2020-10-23 12:45 | NUR ---
PT IS RELAXING IN BED WITH NO DISTRESS NOTED. IV SITE IS FREE FROM REDNESS OR EDEMA.
[2020-10-23 16:00] VITALS: BP 130/72
--- NOTE | 2020-10-23 16:30 | NUR ---
PT IS RELAXING IN BED WITH NO DISTRESS NOTED. IV SITE IS FREE FROM REDNESS OR EDEMA
--- NOTE | 2020-10-23 19:06 | NUR ---
REPORT FROM JASON CELIS. ASSUMED PT CARE AT THIS TIME.
[2020-10-23 19:20] VITALS: BP 127/73
--- NOTE | 2020-10-23 21:55 | NUR ---
CURRENT IV SITE FOUND DISLODGED. NO INFILTRATION NOTED. CATHETER REMOVED, CATH INTACT. NEW IV STARTED X1 ATTEMPT #22 LFA WITH BRISK BLOOD RETURN. PT TOLERATED WELL. PT REQUESTING ICE CREAM PROVIDED. NO OTHER CURRENT WANTS OR NEEDS NOTED. CALL LIGHT WITHIN REACH. WILL CONTINUE TO MONITOR.
--- NOTE | 2020-10-24 00:21 | NUR ---
PT RESTING IN BED WITH EYES CLOSED. NO APPARENT DISTRESS NOTED. PT WAKES EASILY. IV ABT INFUSING WITHOUT DIFFICULTY. IV SITE APPEARS HEALTHY. PT REQUEST SODA, PROVIDED AT THIS TIME. CALL LIGHT WITHIN REACH. WILL CONTINUE TO MONITOR.
--- NOTE | 2020-10-24 04:06 | NUR ---
PT RESTING IN BED WITH EYES CLOSED. NO APPARENT DISTRESS NOTED. RESPIRATIONS EVEN AND UNLABORED. KVO IVF INFUSING WITHOUT DIFFICULTY. CALL LIGHT WITHIN REACH. WILL CONTINUE TO MONITOR.
[2020-10-24 04:35] VITALS: BP 158/84
[2020-10-24 04:59] LABS: HEMATOCRIT 38.9 % (39.0-50.0); HEMOGLOBIN 12.9 g/dl (14.0-18.0); IMMATURE GRANULOCYTES 2.6 % (0.0-5.0); MEAN CELL VOLUME 95.1 fL CALC (80.0-100.0); MEAN CORPUSCULAR HGB 31.5 pG CALC (26.0-32.0); MEAN CORPUSCULAR HGB CONC 33.2 g/dL CAL (32.0-36.0); NEUT# 10.1 thou/uL (1.82-7.42); RED BLOOD COUNT 4.09 mill/uL (4.70-6.10)
[2020-10-24 05:33] LABS: ALBUMIN 2.9 g/dL (3.2-5.0); BILIRUBIN, TOTAL 0.3 mg/dL (0.0-1.4); CREATININE 1.7 mg/dL (0.7-1.3); POTASSIUM 4.3 mmol/l (3.5-5.1); TOTAL PROTEIN 5.5 g/dL (6.3-8.2)
[2020-10-24 08:12] VITALS: BP 138/79
--- NOTE | 2020-10-24 08:12 | NUR ---
RECIEVED REPORT FROM LALITA TOLEDO. PT RESTING IN SEMI FOWLERS POSITION UPON ENTERING ROOM. INTRODUCED SELF TO PT AND DISCUSSED POC. PT IS A/O X3. ASSESSMENT AND VITALS COMPLETED. RESPIRATIONS ARE EVEN AND UNLABORED ON ROOM ROOM AIR, 3L NC AT BEDSIDE PRN. PT STATES HE IS DEPENDENT ON AT HOME. HEART RHYTHM NORMAL. BOWEL SOUNDS ACTIVE IN ALL QUADRANTS, LAST REPORTED 10/22/2020. RADIAL AND PEDAL PULSES STRONG. #22G IN RFA RUNNING WITH IVF PER ORDER, SITE APPEARS HEALTHY AND PATENT. PT DENIES OF ANY PAINS OR NEEDS. ALL SAFTEY AND ISOLATION PRECAUTIONS ARE IN PLACE WITH CALL LIGHT IN REACH. WILL CONTINUE TO MONITOR
--- NOTE | 2020-10-24 09:56 | NUR ---
DR WEBB AT BEDSIDE
--- NOTE | 2020-10-24 12:02 | NUR ---
PT REQUEST FOR ICE CREAM. RESPIRATIONS ARE EVEN AND UNLABORED ON ROOM AIR. 2L NC AT BEDSIDE. ENCOURAGED PT TO REAPPLIED IF NEEDED. PT VERBALIZED UNDERSTANDING. IVF INFUSING PER ORDER, SITE APPEARS HEALTHY AND PATENT. PT DENIES OF ANY PAIN OR DISCOMFORTS. ALL SAFETY PRECAUTIONS ARE IN PLACE WITH CALL LIGHT IN REACH. WILL CONTINUE TO MONITOR
[2020-10-24 15:10] VITALS: BP 114/69
--- NOTE | 2020-10-24 16:19 | NUR ---
PT RESTING IN SEMI FOWLERS POSITION. RESPIRATIONS ARE EVEN AND UNABORED ON 2L NC. IVF INFUSING PER ORDER, SITE APPEARS HEALTHY AND PATENT. PT DENIES OF ANY PAINS OR DISCOMFORTS AT THIS TIME. ALL SAFETY PRECAUTIONS ARE IN PLACE WITH CALL LIGHT IN REACH. AIR/CONTACT PRECAUTIONS ARE IN PLACE. WILL CONTINUE TO MONITOR
[2020-10-24 19:00] VITALS: BP 109/62
--- NOTE | 2020-10-24 19:08 | NUR ---
REPORT FROM VIOLET CELIS. ASSUMED PT CARE.
--- NOTE | 2020-10-24 21:26 | NUR ---
PT RESTING IN BED WITH EYES CLOSED. WAKES EASILY, ALERT AND ORIENTED X3. NO APPARENT DISTRESS NOTED. IV SITE APPEARS HEALTHY. PT REQUEST SODA AND SNACK, PROVIDED AT THIS TIME. DISCUSSED POC. PT VERBALIZED UNDERSTANDING. 02 @ 2L/M VIA DE PRN. CALL LIGHT WITHIN REACH. WILL CONTINUE TO MONITOR.
--- NOTE | 2020-10-25 00:35 | NUR ---
PT RESTING IN BED WITH EYES CLOSED. NO APPARENT DISTRESS NOTED. PT WAKES EASILY. IV ABT INFUSING WITHOUT DIFFICULTY. IV SITE APPEARS HEALTHY. PT REQUEST MILK, PROVIDED AT THIS TIME. CALL LIGHT WITHIN REACH. WILL CONTINUE TO MONITOR.
[2020-10-25 04:00] VITALS: BP 128/56
[2020-10-25 05:53] LABS: HEMATOCRIT 39.7 % (39.0-50.0); HEMOGLOBIN 13.1 g/dl (14.0-18.0); MEAN CELL VOLUME 94.1 fL CALC (80.0-100.0); NEUT# 10.02 thou/uL (1.82-7.42); RED BLOOD COUNT 4.22 mill/uL (4.70-6.10); RED CELL DISTRI WIDTH 12.9 % (11.5-15.5)
[2020-10-25 06:05] LABS: IMMATURE GRANULOCYTES 6.5 % (0.0-5.0)
[2020-10-25 06:31] LABS: ALBUMIN 2.9 g/dL (3.2-5.0); BILIRUBIN, TOTAL 0.2 mg/dL (0.0-1.4); CREATININE 1.6 mg/dL (0.7-1.3); POTASSIUM 4.1 mmol/l (3.5-5.1); TOTAL PROTEIN 5.5 g/dL (6.3-8.2)
[2020-10-25 07:48] VITALS: BP 124/78
--- NOTE | 2020-10-25 07:48 | NUR ---
RECIEVED REPORT FROM LALITA STROUD. PT RESTING IN SEMI FOLWERS POSITION UPON ENTERING ROOM.INTRODUCED SELF TO PT AND DISCUSSED POC. PT IS A/O X3. ASSESSMENT AND VITALS COMPLETED. BP 124/78, HR 65, O2 96% ON ROOM AIR. RESPIRATIONS ARE EVEN AND UNLABORED. 2L NC AT BEDSIDE PRN. HEART RHYTHM NORMAL. BOWEL SOUNDS ACTIVE. RADIAL AND PEDAL PULSES STRONG. #22G IN LFA RUNNING WITH D5W PER ORDER, SITE APPEARS HEALTHY AND PATENT. PT DENIES OF ANY PAIN OR DISCOMFORTS. ALL SAFETY AND ISOLATION PRECAUTIONS ARE IN PLACE WITH CALL LIGHT IN REACH. WILL CONTINUE TO MONITOR
[2020-10-25 08:55] VITALS: BP 124/78
--- NOTE | 2020-10-25 09:26 | NUR ---
DR WEBB AT BEDSIDE
--- NOTE | 2020-10-25 11:55 | NUR ---
PT SITTING UP IN BED. RESPIRATIONS ARE EVEN AND UNLABORED ON ROOM AIR. 2L NC AT BEDSIDE PRN. IVF INFUSING PER ORDER, SITE APPEARS HEALTHY AND PATENT. PT DENIES OF ANY PAINS OR DISCOMFORTS. ALL SAFTEY PRECAUTIONS ARE IN PLACE WITH CALL LIGHT IN REACH. WILL CONTINUE TO MONITOR
[2020-10-25] MEDS ORDERED: DECADRON6 MG PO (12:47)
[2020-10-25] MEDS ORDERED: ZITHROMAX250 MG PO (12:48)
[2020-10-25] MEDS ORDERED: PANTOPRAZOLE SO40 M1 PO (12:48)
--- NOTE | 2020-10-25 15:20 | NUR ---
PT EDUCATED ON DISCHARGE INSTRUCTIONS AND NEW MEDICATIONS. PT STATES " I DO NOT USE [facility], I USE [facility]. I TOLD THE DOCTOR THAT. 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 PT DENIES ANY QUESTIONS AND MEDICATIONS. IV REMOVED WITH CATHATER STILL INTACT. PT TOELRATED WELL.WAITING FOR TRANSPORTATION AT THIS TIME. WILL CONTINUE TO MONITOR
--- NOTE | 2020-10-25 15:39 | NUR ---
PRESCRIPTIONS PRINTED TO ALLOW PT TO USE ANY PHARMACY HE CHOOSES.
--- NOTE | 2020-10-25 15:45 | NUR ---
Discharge instructions given. Patient verbalizes understanding of same. Discharged in stable condition via Wheelchair to Home with staff. All belongings sent with pt. PT DISCHARGED HOME WITH [facility] IN STABLE CONDITION ACCOMPAINED BY STAFF. PT LEFT WITH ALL DSICHARGE INSTRUCTIONS AND PRESCRIPTIONS IN HAND
== END 2020-10-25 15:45 | DRG 177 ==
LOC: ED 15:59 → ED-I 20:36 → ED 20:44 → MS2 20:45
PROVIDERS: Emergency Medicine; Nurse Practitioner; Nurse Practitioner Family; ADMIT Internal Medicine; ATTEND Internal Medicine
DX: U07.1 COVID-19 (principal); J12.89 Other viral pneumonia; N17.9 Acute kidney failure, unspecified; E87.1 Hypo-osmolality and hyponatremia; E87.2 Acidosis; E86.0 Dehydration; R19.7 Diarrhea, unspecified; R10.9 Unspecified abdominal pain; J44.9 Chronic obstructive pulmonary disease, unspecified; I12.9 Hypertensive chronic kidney disease with stage 1 through stage 4 chronic kidney disease, or unspecified chronic kidney disease; N18.30 Chronic kidney disease, stage 3 unspecified; K57.30 Diverticulosis of large intestine without perforation or abscess without bleeding; K21.9 Gastro-esophageal reflux disease without esophagitis; Z79.899 Other long term (current) drug therapy; Z88.6 Allergy status to analgesic agent; Z88.1 Allergy status to other antibiotic agents; Z88.5 Allergy status to narcotic agent; Z98.42 Cataract extraction status, left eye; Z98.41 Cataract extraction status, right eye; Z96.1 Presence of intraocular lens; Z85.828 Personal history of other malignant neoplasm of skin; Z87.891 Personal history of nicotine dependence
CPT/HCPCS: G0378; S0164

== ENCOUNTER 2021-08-09 12:54 | Emergency (ER) | payer MEDICARE ==
[~2021-08-09] VITALS: Ht 180.3 cm; Wt 36.0 kg
[~2021-08-09 12:54] MED LIST changes: +DECADRON6 MG PO; +PANTOPRAZOLE SO40 M1 PO
[2021-08-09] MEDS ORDERED: KEFLEX500 MG PO (14:01)
[2021-08-09 14:29] VITALS: BP 165/87
== END 2021-08-09 14:35 | disposition home or self-care (01) ==
LOC: ED 12:54
PROC: 0HQ1XZZ Repair Face Skin, External Approach (ICD-10-PCS; principal; 2021-08-09)
DX: S01.81XA Laceration without foreign body of other part of head, initial encounter (principal); I10 Essential (primary) hypertension; J44.9 Chronic obstructive pulmonary disease, unspecified; W01.198A Fall on same level from slipping, tripping and stumbling with subsequent striking against other object, initial encounter; Y92.039 Unspecified place in apartment as the place of occurrence of the external cause

== ENCOUNTER 2022-02-11 21:07 | Emergency (ER) | payer MEDICARE ==
[~2022-02-11] VITALS: Ht 180.3 cm; Wt 72.5 kg
[~2022-02-11 21:07] MED LIST changes: +KEFLEX500 MG PO
[2022-02-11 21:15] VITALS: BP 153/75
[2022-02-11 21:31] VITALS: BP 154/72
[2022-02-11 21:49] LABS: HEMOGLOBIN 11.5 g/dl (14.0-18.0); IMMATURE GRANULOCYTES 0.5 % (0.0-5.0); MEAN CELL VOLUME 102.9 fL CALC (80.0-100.0); MEAN CORPUSCULAR HGB 32.9 pG CALC (26.0-32.0); MEAN CORPUSCULAR HGB CONC 31.9 g/dL CAL (32.0-36.0); NEUT# 4.32 thou/uL (1.82-7.42); RED BLOOD COUNT 3.5 mill/uL (4.70-6.10); RED CELL DISTRI WIDTH 13.2 % (11.5-15.5)
[2022-02-11 22:00] LABS: BILIRUBIN, TOTAL 0.3 mg/dL (0.0-1.4); CREATININE 2.4 mg/dL (0.7-1.3); POTASSIUM 4.4 mmol/l (3.5-5.1); TOTAL PROTEIN 6.8 g/dL (6.3-8.2)
[2022-02-11 23:17] VITALS: BP 146/84
[2022-02-11 23:31] VITALS: BP 102/70
[2022-02-12 00:21] LABS: URINE BILIRUBIN - DIPSTICK NEGATIVE (NEGATIVE); URINE BLOOD DIPSTICK NEGATIVE (NEGATIVE); URINE COLOR YELLOW; URINE GLUCOSE - DIPSTICK NEGATIVE (NEGATIVE); URINE KETONE NEGATIVE (NEGATIVE); URINE LEUK ESTERASE NEGATIVE (NEGATIVE); URINE NITRITE - DIPSTICK NEGATIVE (Negative); URINE PROTEIN - DIPSTICK NEGATIVE (NEG-TRACE); URINE UROBILINOGEN - DIPSTICK 0.2 E.U./dL (0.2)
[2022-02-12] MEDS ORDERED: MEDDOSEPAK PO (00:40)
[2022-02-12] MEDS ORDERED: ZPAK PO (00:43)
[2022-02-12 00:47] VITALS: BP 102/70
== END 2022-02-12 00:45 | disposition home or self-care (01) ==
LOC: ED 21:07
PROVIDERS: Emergency Medicine
DX: J44.1 Chronic obstructive pulmonary disease with (acute) exacerbation (principal); I13.0 Hypertensive heart and chronic kidney disease with heart failure and stage 1 through stage 4 chronic kidney disease, or unspecified chronic kidney disease; N18.9 Chronic kidney disease, unspecified; I50.9 Heart failure, unspecified; F17.200 Nicotine dependence, unspecified, uncomplicated